=== PATIENT | male | born 1950 | race Caucasian/White ===

== ENCOUNTER 2022-12-11 17:36 | Emergency (ER) | payer MEDICARE, BC ==
[~2022-12-11] VITALS: Ht 177.8 cm; Wt 95.2 kg
[2022-12-11 17:56] LABS: BASOPHILS 0.4 % (0-2); EOSINOPHILS 3.5 % (0-6); HEMATOCRIT 39.8 % (35.0-50.0); HEMOGLOBIN 13.6 g/dL (12.0-18.0); LYMPHOCYTES 17.6 % (24-44); MCH 30.6 (27-36); MCHC 34.2 g/dl (30-36); MCV 89.5 fl (81-99); MONOCYTES 6.9 % (0-12); NEUTROPHILS 71.6 % (39-80); PLATELET COUNT 183 K/uL (140-440); RBC 4.45 M/ul (4.3-5.7); RDW 14.6 (10.5-15.0)
[2022-12-11 18:11] LABS: ALBUMIN 3.6 g/dL (3.4-5.0); ALBUMIN/GLOBULIN RATIO 1.06 (1.1-2.4); ANION GAP 16.8 (7-21); BILIRUBIN, TOTAL 0.4 ng/dL (0.2-1.0); BUN/CREATININE RATIO 19.01 (6.0-28.6); CALCIUM 9.4 mg/dL (8.5-10.1); CREATININE, SERUM 1.63 mg/dL (0.70-1.30); POTASSIUM 3.8 mmol/L (3.5-5.1)
[2022-12-11] MEDS ORDERED: LIPITOR40 MG PO (18:33)
[2022-12-11] MEDS ORDERED: CLOPIDOGREL75 MG PO (18:33)
[2022-12-11] MEDS ORDERED: METFORMIN HCL500 M3 PO (18:33)
[2022-12-11] MEDS ORDERED: ADULT LOW DOSE81 MG PO (18:34)
[2022-12-11] MEDS ORDERED: LEXAPRO10 MG PO (18:34)
[2022-12-11] MEDS ORDERED: ALLOPURINOL300 MG PO (18:34)
[2022-12-11] MEDS ORDERED: OXYBUTYNIN CHLO10 MG PO (18:35)
[2022-12-11] MEDS ORDERED: ZESTRIL5 MG PO (18:35)
[2022-12-11] MEDS ORDERED: CLARITIN10 MG PO (18:36)
[2022-12-11] MEDS ORDERED: KEPPRA500 MG PO (19:10)
[2022-12-11 20:37] VITALS: BP 145/78
--- NOTE | 2022-12-12 22:06 | EKG ---
[facility] [address] [facility] [place] [address] Signed Normal sinus rhythm Normal ECG No previous ECGs available Confirmed by Tereza Forde MD () on 12/12/2022 10:06:03 PM Electronically Signed By: TEREZA FODRE MD 12/12/222205 PATIENT NAME: TATE MONK Electrocardiogram DATE OF : 50 PHYSICIAN: TEREZA FORDE MD REPORT #: [id number] REPORT IS CONFIDENTIAL AND NOT TO BE RELEASED WITHOUT AUTHORIZATION
== END 2022-12-11 20:38 | disposition home or self-care (01) ==
LOC: ED 17:36
PROVIDERS: Emergency Medicine
DX: R56.9 Unspecified convulsions (principal); R51.9 Headache, unspecified; R90.89 Other abnormal findings on diagnostic imaging of central nervous system; I10 Essential (primary) hypertension; Z79.01 Long term (current) use of anticoagulants; Z79.84 Long term (current) use of oral hypoglycemic drugs; Z79.82 Long term (current) use of aspirin; Z79.899 Other long term (current) drug therapy; Z86.73 Personal history of transient ischemic attack (TIA), and cerebral infarction without residual deficits
CPT/HCPCS: 36415; 70450; 71045; 80053; 85025; 93005; 93010; 99285-25